=== PATIENT | male | born 1990 | race African-American/Black ===

== ENCOUNTER 2021-05-16 19:10 | Emergency (ER) | payer SELFPAY ==
[~2021-05-16] VITALS: Ht 182.9 cm; Wt 100.0 kg
[2021-05-16 19:40] VITALS: BP 136/91
[2021-05-16] MEDS ORDERED: NAPROXEN 250MG TABLET PO ONE (20:15)
[2021-05-16] MEDS ORDERED: LIDOCAINE 5% PATCH TOP SCH (20:15)
== END 2021-05-16 20:15 | disposition left against medical advice (07) ==
LOC: ER 19:10
DX: M54.50 Low back pain, unspecified (principal)
CPT/HCPCS: 99283